=== PATIENT | female | born 1965 | race Caucasian/White ===

== ENCOUNTER → 2024-05-15 11:01 | Outpatient (REF) | payer BC, SELFPAY | LOC: WDC 11:01 | PROVIDERS: ATTENDING PHYSICIAN Physician Assistant | DX: Z12.31 Encounter for screening mammogram for malignant neoplasm of breast (principal) | CPT/HCPCS: 77063; 77067 ==

== ENCOUNTER → 2024-08-22 07:38 | Outpatient (REF) | payer BC, SELFPAY | LOC: RAD 07:38 | PROVIDERS: ATTENDING PHYSICIAN Nurse Practitioner Family | DX: J22 Unspecified acute lower respiratory infection (principal) | CPT/HCPCS: 71046 ==

== ENCOUNTER 2024-09-23 10:59 | Emergency (ER) | payer BC, SELFPAY ==
[2024-09-23 11:02] VITALS: BP 179/112
[2024-09-23 11:24] LABS: % Basophils 1.1 % (0-2); % Eosinophils 9.7 % (0-6); % Immature Granulocytes 0.2 % (0-0.5); % Lymphocytes 27.6 % (20.5-51.1); % Monocytes 5.3 % (1.7-9.3); % Neutrophils 56.1 % (42.2-75.2); Absolute Basophils 0.1 10^3/uL (0-0.2); Absolute Eosinophils 0.9 10^3/uL (0-0.7); Absolute Lymphocytes 2.5 10^3/uL (1.2-3.4); Absolute Monocytes 0.5 10^3/uL (0.1-0.6); Hematocrit 40.5 % (37.0-47.0); Hemoglobin 14.5 g/dL (12.0-16.0); Mean Corp Hgb Conc. 35.8 g/dL (33.0-37.0); Mean Corpuscular Hgb 34.8 pg (27.0-31.0); Mean Corpuscular Volume 97.1 fL (81.0-99.0); Mean Platelet Volume 9.7 fL (7.4-10.4); Nucleated Red Blood Cells % 0 %; Platelet Count 376 10^3/uL (130-400); Red Blood Cell Count 4.17 10^6/uL (4.20-5.40); Red Cell Dist. Width 11.8 % (11.5-14.5); White Blood Cell Count 8.9 10^3/uL (4.8-10.8)
[2024-09-23 11:34] LABS: ALT (SGPT) 22 U/L (0-35); AST (SGOT) 25 U/L (14-36); Albumin 4.5 g/dl (3.5-5.0); Alkaline Phosphatase 75 U/L (38-126); Blood Urea Nitrogen 17 mg/dl (7-17); Carbon Dioxide 25 mmol/L (22-30); Chloride 106 mmol/L (98-107); Glucose 136 mg/dl (70-99); Potassium 3.9 mmol/L (3.5-5.1); Sodium 138 mmol/L (135-145); Total Bilirubin 1.1 mg/dl (0.2-1.3); Total Protein 7.4 g/dl (6.3-8.2); eGFR > 60.00
--- NOTE | 2024-09-23 11:35 | ED.GENMED ---
History of Present Illness
General
Chief Complaint: Cough
Source: patient
Exam Limitations: none
Time Seen by Provider: 09/23/24 11:14
Nursing documentation reviewed up to this point in time: agreed with
History of Present Illness
History of Present Illness:
59-year-old female presents to the ER for evaluation of cough. Patient reports she has had a cough since July which is getting worse. She has been seen by her family doctor and had x-ray for this. She also uses inhalers however this morning she
had a coughing fit and was very short of breath which is what prompted patient to the ER. 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
She smokes very occasionally. She denies any associated fevers.
She has not she has not been on steroids.
Past History
Past History
ED Past Medical History: HTN
Social History
Employment: Employed
Review of Systems
Review of Systems
Allergies reviewed?: Yes
All Other Systems: ROS reviewed and negative except as documented in HPI and ROS
Constitutional: Reports no symptoms; Denies fever, fatigue or chills
Respiratory: Reports cough and trouble breathing
Cardiac: Reports no symptoms
ABD/GI: Reports no symptoms
Musculoskeletal: Reports no symptoms
Skin: Reports no symptoms
Neurological: Reports no symptoms
Psychiatric: Reports no symptoms
Phy Exam
General Physical Exam
General Presentation: no apparent distress
General age: appears stated age
General Skin: warm and dry
General Habitus: normal
General Mental: alert
General Hydration: appears well hydrated
Cardiovascular Exam
Cardiovascular Exam: regular rate/rhythm, no murmur and normal peripheral pulses
Pulmonary Exam
Pulmonary Exam: no respiratory distress, no stridor and generalized wheezing
Neurological Exam
Neurological Exam: alert and oriented x3
Musculoskeletal Exam
Musculoskeletal Exam: full ROM
Skin Exam
Skin Exam: normal color and warm/dry
Psychiatric Exam
Psychiatric Exam: normal mood/affect
Course
Orders/Labs/Results
Orders:
Orders
09/23/24 11:07
CR Chest - 2 Views Urgent
Comment:
Reason For Exam: cough
09/23/24 11:10
Complete Blood Count/With Diff Urgent
Comprehensive Metabolic Panel Urgent
09/23/24 11:35
Dexamethasone Pf [Decadron] 10 mg PO NOW STA
09/23/24 11:36
Albuterol Nebs [Ventolin Nebules] 2.5 mg INH R NOW STA
09/23/24 12:44
Ipratropium/Albuterol Sulfate [Duoneb] 3 ml INH R NOW STA
09/23/24 13:34
Albuterol Nebs [Ventolin Nebules] 2.5 mg INH R NOW STA
09/23/24 13:55
CT Chest PE Study Stat
Comment:
Reason For Exam: persistant cough/sob
09/23/24 16:56
Doxycycline [Vibramycin] 100 mg PO NOW STA
Abnormal Lab Results
09/23/24
11:10
RBC 4.17 L 10^6/uL
(4.20-5.40)
MCH 34.8 H pg
(27.0-31.0)
Absolute Eos (auto) 0.9 H 10^3/uL
(0-0.7)
Eosinophils % 9.7 H %
(0-6)
Glucose 136 H mg/dl
(70-99)
09/23/24 11:10
09/23/24 11:10
Vital Signs
Initial and Last Documented VS:
Initial Vital Signs
Temp Pulse Resp BP Pulse Ox
98.8 F 87 16 179/112 96
09/23/24 11:02 09/23/24 11:02 09/23/24 11:02 09/23/24 11:02 09/23/24 11:02
Last Documented Vital Signs
Temp Pulse Resp BP Pulse Ox
98.8 F 91 18 127/86 99
09/23/24 11:02 09/23/24 15:00 09/23/24 15:00 09/23/24 15:00 09/23/24 15:00
MDM/Problems Addressed
Differential Diagnosis Includes:
Not limited to bronchitis, pneumonia
MDM/Problems Addressed:
As documented patient is a 59-year-old female with history of mast cell activation syndrome with persistent cough intermittently since July. She has had negative x-rays as an outpatient by her family doctor and she is using inhalers. She presents
with obvious wheezing but she is not hypoxic. Patient was given multiple nebs here along with Decadron feeling better sounding better. With persistent cough / shortness of breath a CAT scan was ordered. CAT scan does show moderate bilateral
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 This was reviewed with pulmonary Dr. Childress who does recommend antibiotics and I will also DC on
nebulizers, albuterol and steroids with close outpatient follow-up pulmonary. The office will reach out to patient the next several days.
Chronic conditions affecting care:
Mast cell activation syndrome
*Radiology
Radiology exam reviewed: radiology read reviewed
*Pulse Oximetry
Patient hypoxic: no
*Critical Care Note
Total Time (30-74mins, 75-104mins- exclusive of procedures): Not Applicable
Patient Management
Discussion with other providers: Insights Analyst (Pulmonary Dr. Childress)
ED Attending Note
-
Portions of this chart may have been created with voice recognition software.� Occasional wrong word or��sound alike� substitutions may have occurred due to the inherent limitations of voice recognition software.
Discharge Plan
Departure
Patient Disposition: Home (Routine Discharge)
Date of Disposition: 09/23/24
Time of Disposition: 16:47
Patient with high blood pressure during this ER visit?: Yes
Condition: Fair
Covid-19: Not Applicable
Discharge Problem:
Bronchitis
Instructions: Acute Bronchitis, Adult (DC), BLOOD PRESSURE
Prescriptions:
New
prednisone 20 mg tablet
40 mg PO DAILY Qty: 10 0RF
albuterol sulfate 2.5 mg /3 mL (0.083 %) solution for nebulization
2.5 mg inhalation Q4H PRN (Reason: shortness of breath or wheezing) Qty: 75 0RF
doxycycline hyclate 100 mg tablet
100 mg PO BID Qty: 14 0RF
Referrals:
Travis Llanes MD [Active] -
Payton Pop MD [Family Provider] -
Stand Alone Forms: Return to Work
Activity Restrictions/Additional Instructions:
As discussed please start antibiotics as well as steroids. Prescriptions were sent to your pharmacy. In addition prescriptions for albuterol Nebules were sent to the pharmacy. You were given a nebulizer for at home use. The elevator dispatcher office
should call you in the next several days if you do not hear from them please give them a call to schedule an appointment as soon as possible .
return if any worsening of symptoms
Interventions
Interventions:
*Risk Screen - Suicide Last Done: 09/23/24 11:02
*General Assessment Last Done: 09/23/24 11:02
*Neglect/Abuse Screening Last Done: 09/23/24 11:02
*ED- Fall Risk Assessment Last Done: 09/23/24 11:02
*ED COVID-19 Vaccine History Last Done: 09/23/24 11:02
ED- Pulmonary Assessment Last Done: 09/23/24 11:48
Discharge Date and Time
Print Language: MOZAMBICAN
[2024-09-23] MEDS: VENTOLIN NEBULES 2.5 MG INH ×2 (11:43→13:47)
[2024-09-23] MEDS: DECADRON 10 MG PO (11:43)
[2024-09-23] MEDS: DUONEB 3 ML INH (12:55)
[2024-09-23 15:00] VITALS: BP 127/86
[2024-09-23] MEDS: VIBRAMYCIN 100 MG PO (17:06)
== END 2024-09-23 17:18 | disposition home or self-care (01) ==
LOC: EMR 10:59
PROVIDERS: Physician Assistant; EMERGENCY PHYSICIAN Student in an Organized Health Care Education/Training Program; FAMILY PHYSICIAN Family Medicine
DX: J20.9 Acute bronchitis, unspecified (principal); I10 Essential (primary) hypertension; D89.40 Mast cell activation, unspecified; F17.200 Nicotine dependence, unspecified, uncomplicated; J98.4 Other disorders of lung; Z88.0 Allergy status to penicillin
CPT/HCPCS: 99284; 94640 ×3; 71046; 71275; 80053; 85025; Q9967

== ENCOUNTER 2025-03-31 06:38 | Day surgery (SDC) | payer BC, SELFPAY | END 2025-03-31 15:37 | disposition home or self-care (01) | LOC: GI 06:38 | PROVIDERS: ATTENDING PHYSICIAN Surgery | DX: K62.5 Hemorrhage of anus and rectum (principal); K64.4 Residual hemorrhoidal skin tags; K56.699 Other intestinal obstruction unspecified as to partial versus complete obstruction; K64.8 Other hemorrhoids; D12.3 Benign neoplasm of transverse colon | CPT/HCPCS: 45380; 88305; 88313 ==

== ENCOUNTER → 2025-04-10 16:39 | Outpatient (REF) | payer BC, SELFPAY | LOC: RAD 16:39 | PROVIDERS: ATTENDING PHYSICIAN Surgery; FAMILY PHYSICIAN Family Medicine | DX: R19.03 Right lower quadrant abdominal swelling, mass and lump (principal) | CPT/HCPCS: 74177; Q9967 ==